=== PATIENT | female | born 1965 | race Caucasian/White ===

== ENCOUNTER 2017-01-21 14:23 | Emergency (ER) | payer OTHER ==
[2017-01-21 15:24] LABS: HEMOGLOBIN 13.8 gm/dl (12.3-15.3); RED BLOOD COUNT 4.39 M/UL (4.00-5.10); WHITE BLOOD COUNT 6.8 K/UL (4.5-11.0)
[2017-01-21 15:41] LABS: BUN/CREATININE RATIO 16 (0-10)
== END 2017-01-21 17:08 | disposition home or self-care (01) ==
LOC: ER1 14:23
PROVIDERS: Nurse Practitioner Family
DX: M70.31 Other bursitis of elbow, right elbow (principal); L03.113 Cellulitis of right upper limb
CPT/HCPCS: 73080; 80053; 84550; 85025; 86140; 96372; 99283; J1885

== ENCOUNTER 2021-03-28 13:25 | Emergency (ER) | payer OTHER ==
[~2021-03-28 13:25] MED LIST: ASPIRIN CHEWABL81 MG PO; MACROBID 100 M100 MG PO; NORFLEX 100 MG100 MG PO; PREDNISONE 50 M50 MG PO
[2021-03-28] MEDS ORDERED: IBUPROFEN600 MG PO (15:12)
== END 2021-03-28 15:30 | disposition home or self-care (01) ==
LOC: ER1 13:25
DX: S93.401A Sprain of unspecified ligament of right ankle, initial encounter (principal); F17.200 Nicotine dependence, unspecified, uncomplicated; X50.1XXA Overexertion from prolonged static or awkward postures, initial encounter
CPT/HCPCS: 73610; 73630; 99283

== ENCOUNTER 2022-03-06 09:07 | Emergency (ER) | payer OTHER ==
[~2022-03-06 09:07] MED LIST changes: +IBUPROFEN600 MG PO
[2022-03-06 10:05] LABS: RED BLOOD COUNT 4.67 M/UL (4.00-5.10); WHITE BLOOD COUNT 7.2 K/UL (4.5-11.0)
[2022-03-06 10:27] LABS: BUN/CREATININE RATIO 19 (0-10)
== END 2022-03-06 13:15 | disposition left against medical advice (07) ==
LOC: ER1 09:07
PROVIDERS: Emergency Medicine
DX: S22.32XA Fracture of one rib, left side, initial encounter for closed fracture (principal); F17.200 Nicotine dependence, unspecified, uncomplicated; W19.XXXA Unspecified fall, initial encounter
CPT/HCPCS: 70450; 71111; 80053; 81001; 82550; 82553; 84484; 85025; 93005; 99283